=== PATIENT | male | born 1960 | race Two or more races ===

== ENCOUNTER 2020-01-04 12:05 | Emergency (ER) | payer MEDICAID, SELFPAY ==
--- NOTE | 2020-01-04 12:18 | ED_ITS ---
HPI - Abdominal Pain General Chief Complaint: Abdominal Pain Stated Complaint: abd pain Time Seen by Provider: 01/04/20 12:18 Source: patient Mode of arrival: ambulatory Limitations: no limitations History of Present Illness HPI narrative: patient no significant abdominal complaints in the past noticed diffuse abdominal pain for last 2 weeks history of hemorrhoids and slight blood in the stool when he wipes. Patient has seen his primary care doctor plan to get a CT scan as outpatient which has not been done. Patient denied any nausea/vomiting patient has good appetite MD elicited complaint: abdominal pain Pertinent past history: none Onset (ago): week(s) (2) Location: diffuse Severity: mild Quality: cramping Radiation: none Exacerbating factors: nothing Relieving factors: nothing Associated symptoms: denies other symptoms Related Data Previous Rx's Medication Instructions Recorded dicyclomine 20 mg PO QID PRN #20 tab 01/04/20 Allergies Allergy/AdvReac Type Severity Reaction Status Date / Time morphine [MORPHINE] Allergy Unknown RASH/HIVES Verified 01/04/20 12:31 From MORGIDOX Allergy Unknown ITCHY Uncoded 10/24/19 16:38 Review of Systems Review of Systems REVIEW OF SYSTEMS: Pertinent positives and negatives are stated above in the history. GEN: no fevers, chills, fatigue HEENT: no nasal congestion, sore throat, ear pain NEURO: no headache, dizziness, focal weakness PULM: no cough, shortness of breath CV: no chest pain, palpitations, LE edema ABD: no nausea, vomiting, diarrhea : no dysuria, urgency, frequency SKIN: no rash ROS otherwise negative x 10 Physical Exam Vital Signs: Vital Signs: Last Vital Signs Temp 98.3 F 01/04/20 14:00 Pulse 80 01/04/20 14:00 Resp 16 01/04/20 14:00 BP 137/81 01/04/20 14:00 Pulse Ox 96 01/04/20 14:00 Body Mass Index 33.0 Appearance: Alert. Oriented X3. No acute distress. Eyes: Pupils equal, round and reactive to light. ENT: Pharynx normal. Neck: Normal inspection. Neck supple. CVS: Normal heart rate and rhythm. Pulses normal. Respiratory: No respiratory distress. Breath sounds normal. Abdomen: Soft and diffuse tenderness no focal tenderness no guarding no rebound tenderness no mass palpable bowel sounds are normal Skin: Skin warm and dry. Normal skin color. Normal skin turgor. Extremities: No lower extremity edema. Good range of movement Neuro: Oriented X 3. No motor deficit. No sensory deficit. MDM - Abdominal Pain MDM Narrative Medical decision making narrative: patient diffuse abdominal pain no focal guarding or tenderness normal WBC count CT scan essentially is negative except for diverticulosis will give him the dicyclomine for abdominal cramps and discharge him home advised to follow-up with primary care doctor. Patient did have a colonoscopy 3 years ago which was negative and has a GI follow-up Differential Diagnosis Differential diagnosis: Likely abdominal pain, constipation, diverticulitis and pancreatitis Medical Records Attestation: I reviewed the patient's medical records. Lab Data Attestation: I reviewed the patient's lab results. Result diagrams: 01/04/20 12:59 01/04/20 12:59 Labs: Lab Results 01/04/20 01/04/20 01/04/20 Range/Units 12:59 12:59 12:59 WBC 10.0 (4.8-10.8) X10*3/uL RBC 5.24 (4.60-5.80) X10*6/uL Hgb 16.4 (14.0-18.0) g/dl Hct 47.3 (42-52) % MCV 90.3 (80-98) fL MCH 31.3 (27.0-33.0) pg MCHC 34.7 (31.0-36.0) g/dl RDW 12.4 (11.0-16.0) % Plt Count 325 (160-400) X10*3/uL MPV 10.0 (9.4-12.4) fL Immature Gran % (Auto) 0.3 (0.0-0.4) % Neut % (Auto) 50.3 (45-73) % Lymph % (Auto) 37.0 (20-40) % [place] % (Auto) 7.7 (2-11) % Eos % (Auto) 4.1 H (0-4) % Baso % (Auto) 0.6 (0-2) % Lymph # (Auto) 3.7 (1.2-4.9) X10*3/uL [place] # (Auto) 0.8 (0.1-1.2) X10*3/uL Eos # (Auto) 0.4 (0.0-0.4) X10*3/uL Baso # (Auto) 0.1 (0.0-0.2) X10*3/uL Abs Immat Gran (auto) 0.03 (0.00-0.03) X10*3/uL Absolute Neuts (auto) 5.0 (2.0-8.3) X10*3/uL Absolute Nucleated RBC 0.000 (0.0-0.012) X10*3/uL Nucleated RBC % (auto) 0.0 (0.0-0.2) /100WBC Hold Blue Top SEE NOTE Sodium 138 (135-145) mmol/L Potassium 4.6 (3.3-5.1) mmol/l Chloride 102 (96-108) mmol/L Carbon Dioxide 27 (22-29) mmol/L Anion Gap 14 (12-20) BUN 19 H (9-16) mg/dL Creatinine 0.82 (0.5-1.4) mg/dL Estim Creat Clear Calc 113.0 Estimated GFR > 60 Random Glucose 107 (60-115) mg/dL Calcium 9.6 (8.4-10.2) mg/dL Total Bilirubin 0.7 (0.0-1.0) mg/dL AST 26 (5-37) U/L ALT 38 (0-40) U/L Alkaline Phosphatase 91 (39-117) U/L Total Protein 7.7 (6.5-8.0) g/dL Albumin 4.5 (3.5-5.0) g/dL Lipase 29 (8-78) U/L Urine Color Urine Appearance Urine pH (5.0-8.0) Ur Specific [place] (1.005-1.025) Urine Protein (NEG-TRACE) MG/DL Urine Glucose (UA) (NEG) MG/DL Urine Ketones (NEG) MG/DL Urine Blood (NEG) Urine Nitrite (NEG) Ur Leukocyte Esterase (NEG) 01/04/20 Range/Units 12:59 WBC (4.8-10.8) X10*3/uL RBC (4.60-5.80) X10*6/uL Hgb (14.0-18.0) g/dl Hct (42-52) % MCV (80-98) fL MCH (27.0-33.0) pg MCHC (31.0-36.0) g/dl RDW (11.0-16.0) % Plt Count (160-400) X10*3/uL MPV (9.4-12.4) fL Immature Gran % (Auto) (0.0-0.4) % Neut % (Auto) (45-73) % Lymph % (Auto) (20-40) % [place] % (Auto) (2-11) % Eos % (Auto) (0-4) % Baso % (Auto) (0-2) % Lymph # (Auto) (1.2-4.9) X10*3/uL [place] # (Auto) (0.1-1.2) X10*3/uL Eos # (Auto) (0.0-0.4) X10*3/uL Baso # (Auto) (0.0-0.2) X10*3/uL Abs Immat Gran (auto) (0.00-0.03) X10*3/uL Absolute Neuts (auto) (2.0-8.3) X10*3/uL Absolute Nucleated RBC (0.0-0.012) X10*3/uL Nucleated RBC % (auto) (0.0-0.2) /100WBC Hold Blue Top Sodium (135-145) mmol/L Potassium (3.3-5.1) mmol/l Chloride (96-108) mmol/L Carbon Dioxide (22-29) mmol/L Anion Gap (12-20) BUN (9-16) mg/dL Creatinine (0.5-1.4) mg/dL Estim Creat Clear Calc Estimated GFR Random Glucose (60-115) mg/dL Calcium (8.4-10.2) mg/dL Total Bilirubin (0.0-1.0) mg/dL AST (5-37) U/L ALT (0-40) U/L Alkaline Phosphatase (39-117) U/L Total Protein (6.5-8.0) g/dL Albumin (3.5-5.0) g/dL Lipase (8-78) U/L Urine Color YELLOW Urine Appearance CLEAR Urine pH 5.5 (5.0-8.0) Ur Specific [place] >= 1.030 H (1.005-1.025) Urine Protein NEG (NEG-TRACE) MG/DL Urine Glucose (UA) NEG (NEG) MG/DL Urine Ketones NEG (NEG) MG/DL Urine Blood NEG (NEG) Urine Nitrite NEG (NEG) Ur Leukocyte Esterase NEG (NEG) Discharge Plan Discharge Clinical Impression: Diverticulosis Patient Disposition: Home, Self-Care Instructions: Diverticulosis (ED) Additional Instructions: drink plenty of fluid medication adverse advised for abdominal pain. Report to the ER if increased fever increased pain vomiting or blood in stool Prescriptions: New dicyclomine 20 mg tablet 20 mg PO QID PRN (Reason: abdominal pain) Qty: 20 RF: 0 Interventions: ED Discharge Assessment Last Done: 01/04/20 15:24 Discharge Date/Time: 01/04/20 15:25 [facility] Past Medical History Medical History Spleen absent Social History Social History Alcohol intake: never Smoking Status: Never smoker Use of substances other than those prescribed or required for medical reasons: No Advance Directives: No Advance Directives Information Provided: No
--- NOTE | 2020-01-04 12:31 | CT_ITS ---
EXAMINATION: CT ABDOMEN AND PELVIS WITHOUT CONTRAST CLINICAL INFORMATION: Left lower quadrant pain. Diverticulitis? COMPARISON: Abdomen ultrasound from 11/29/2017. Abdomen CT from 10/31/2000. TECHNIQUE: Multidetector volumetric imaging was performed from the superior aspect of the liver through the pubic symphysis. Sagittal and coronal reformatted images were obtained on the technologist's workstation. This CT examination was performed using dose optimization techniques as appropriate, variously including the following: *Automated exposure control *Adjustment of mA and/or kV according to patient size (this includes techniques or standardized protocols for targeted exams where dose is matched to indication/reason for exam; i.e. extremities or head) *Use of iterative reconstruction technique DLP: 701 mGy-cm FINDINGS: LUNG BASES: No basilar consolidation or pleural effusion. There are subtle hazy and reticular opacities around peripheral airways in lower lobes, consistent with mild peribronchiolar inflammatory changes and/or minimal atelectasis. HEPATOBILIARY: Liver has normal size and contour. Diffuse hepatic steatosis. Gallbladder is unremarkable. No intrahepatic or extrahepatic bile duct dilatation. PANCREAS: Normal. No evidence of pancreatic ductal dilatation or mass. SPLEEN: 6 cm rounded structure in the left upper quadrant is unchanged compared to 10/31/2010. 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 ADRENAL GLANDS: Normal. KIDNEYS AND URETERS: Kidneys are normal in size. Bilateral renal cysts are present. 1.7 x 2.3 cm hyperdense proteinaceous or hemorrhagic cyst at the the posterior lower pole of the left kidney. No nephrolithiasis or hydronephrosis. BOWEL AND PERITONEUM: Stomach is unremarkable. No dilated loops of bowel. The appendix is normal. No overt bowel wall thickening or mesenteric fat stranding. Mild diverticulosis of the descending and sigmoid colon without diverticulitis. No ascites or pneumoperitoneum. ABDOMINAL WALL: Small fat-containing periumbilical hernia. VASCULATURE: Abdominal aorta is normal in size. 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 It measures 1.2 cm AP diameter, compared to 1 cm on 10/31/2010. There might be a second renal artery aneurysm of 1.1 cm size. LYMPH NODES: No pathologic sized lymph nodes in the abdomen or pelvis. No inguinal lymphadenopathy. BLADDER AND PELVIC VISCERA: Urinary bladder is empty. No bladder calculi. Prostate gland is unremarkable. No pelvic free fluid. SKELETAL: Unremarkable. CT/CT abdomen pelvis wo con IMPRESSION: * Mild diverticulosis of the descending and sigmoid colon without diverticulitis. No specific source of left lower abdominal pain is identified. * No evidence of urolithiasis or urinary tract obstruction. * There is a 1.7 x 2.3 cm hyperdense proteinaceous or hemorrhagic cyst at the posterior lower pole of the left kidney. * Diffuse hepatic steatosis. 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
[2020-01-04 12:32] VITALS: BP 150/94; PULSE 81; RESP 18; TEMP 36.8; O2SAT 97; BMI 33.0
[2020-01-04] MEDS: 0.9 % Sodium Chloride 1,000 ML 999 ML IVCONT (13:03)
[2020-01-04 13:07] LABS: Glucose Urine UA NEG (NEG); Leukocyte Esterase Urine NEG (NEG); Nitrite Urine NEG (NEG); PH 5.5 (5.0-8.0); Specific Gravity - Urine >= 1.030 (1.005-1.025); Urine Blood NEG (NEG); Urine Ketones NEG (NEG); Urine Protein NEG (NEG-TRACE)
[2020-01-04 13:08] LABS: Appearance Urine CLEAR; Basophils Absolute Auto 0.1 X10*3/uL (0.0-0.2); Basophils Percent Auto 0.6 % (0-2); Color Urine YELLOW; Eosinophils Absolute Auto 0.4 X10*3/uL (0.0-0.4); Eosinophils Percent Auto 4.1 % (0-4); Hematocrit 47.3 % (42-52); Hemoglobin 16.4 g/dl (14.0-18.0); Imm Gran Abs Auto 0.03 X10*3/uL (0.00-0.03); Imm Gran Pct Auto 0.3 % (0.0-0.4); Lymphocytes Absolute Auto 3.7 X10*3/uL (1.2-4.9); Mean Corpuscular HGB Conc 34.7 g/dl (31.0-36.0); Mean Corpuscular Hemoglobin 31.3 pg (27.0-33.0); Mean Corpuscular Volume 90.3 fL (80-98); Monocytes Absolute Auto 0.8 X10*3/uL (0.1-1.2); Monocytes Percent Auto 7.7 % (2-11); Neutrophils Percent Auto 50.3 % (45-73); Platelet Count 325 X10*3/uL (160-400); Red Blood Count 5.24 X10*6/uL (4.60-5.80); Red Cell Distribution Width 12.4 % (11.0-16.0)
[2020-01-04 13:10] LABS: MANUAL DIFF FLAG NO
[2020-01-04 13:35] LABS: Alanine Aminotransferase 38 U/L (0-40); Albumin Level 4.5 g/dL (3.5-5.0); Alkaline Phosphatase 91 U/L (39-117); Anion Gap 14 (12-20); Aspartate Amino Transferase 26 U/L (5-37); Bilirubin Total 0.7 mg/dL (0.0-1.0); Blood Urea Nitrogen 19 mg/dL (9-16); Calcium 9.6 mg/dL (8.4-10.2); Carbon Dioxide 27 mmol/L (22-29); Chloride 102 mmol/L (96-108); Estimated Glomerular Filt Rate > 60; Glucose Random 107 mg/dL (60-115); Lipase 29 U/L (8-78); Potassium 4.6 mmol/l (3.3-5.1); Sodium 138 mmol/L (135-145); Total Protein 7.7 g/dL (6.5-8.0)
[2020-01-04 14:00] VITALS: BP 137/81; PULSE 80; RESP 16; TEMP 36.8; O2SAT 96
[2020-01-04] MEDS: Dicyclomine HCl 10 MG CAPSULE 20 MG PO (15:18)
== END 2020-01-04 15:25 | disposition home or self-care (01) ==
PROVIDERS: Emergency Provider Internal Medicine; PCP Internal Medicine Geriatric Medicine
DX: K57.30 Diverticulosis of large intestine without perforation or abscess without bleeding (principal); R10.9 Unspecified abdominal pain; Z79.899 Other long term (current) drug therapy
CPT/HCPCS: 36415; 74176; 80053; 81003; 83690; 85025; 96360; 99284

== ENCOUNTER 2020-01-15 09:33 | Outpatient (REF) | payer MEDICAID, SELFPAY ==
--- NOTE | 2020-01-15 09:35 | CT_ITS ---
EXAMINATION: CT ABDOMEN WITH CONTRAST CLINICAL INFORMATION: Periapical pain. COMPARISON: CT abdomen and pelvis 12/27/2019. TECHNIQUE: Contiguous axial thin section helical images of the abdomen were performed following the administration of oral contrast and 85 mL of Omnipaque 350 intravenous contrast. The data set was reformatted in the coronal and sagittal planes and reviewed on an independent workstation. This CT examination was performed using dose optimization techniques as appropriate, variously including the following: *Automated exposure control *Adjustment of mA and/or kV according to patient size (this includes techniques or standardized protocols for targeted exams where dose is matched to indication/reason for exam; i.e. extremities or head) *Use of iterative reconstruction technique DLP: 370 mGy-cm FINDINGS: LUNG BASES: Both lung bases are expanded and clear. The heart size is normal. LIVER, GALLBLADDER, AND BILIARY TREE: The liver is normal size, contour and decreased density. No focal lesion or intrahepatic ductal dilatation seen. No radiopaque gallstones or wall thickening seen. PANCREAS: The pancreas is unremarkable. SPLEEN: Spleen is absent. There is a small accessory splenule measuring 6.2 cm in maximum width. ADRENAL GLANDS AND KIDNEYS: The adrenal glands are symmetrical and normal. Both kidneys are normal size, shape and position. There is mild cortical thinning or scarring upper lobe pole left kidney. There are bilateral renal cysts largest left renal cyst lower pole left kidney measures 4.5 x 4.5 x 4.9 cm. The high density exophytic lesion along the lower pole left kidney measuring 2.2 x 1.5 x 2.1 cm and approximately 89 Hounsfield units suggestive of a solid lesion. It appears unchanged to the recent exam of 01/04/2020, however, reported as proteinaceous or hemorrhagic cyst. There are 4 mm punctate radiopaque calculi in the upper pole left kidney better visualized on 12/27/2019 CT exam. No caliectasis or hydronephrosis seen in either kidney. BOWEL LOOPS: There is scattered stool and gas seen throughout the colon without any significant distention. There is scattered colonic diverticulosis. The small bowel loops are opacified oral contrast and are normal caliber. Appendix is normal. No inflammatory changes seen in the abdomen exam. LYMPH NODES: Normal. VASCULAR: Unremarkable. BONES: No gross bony abnormality seen. CT/CT abdomen w con IMPRESSION: Mild attenuation of liver without any focal lesions. Colonic diverticulosis without visible diverticulitis on this abdomen CT. Multiple bilateral renal cysts with scarring or cortical thinning upper pole left kidney. Nonobstructive 2 radiopaque calculi upper pole left kidney seen previously without caliectasis or hydronephrosis. There is a complex slightly enhancing lesion exophytic lower pole left kidney. On previous noncontrast CT abdomen exam it measures 60 Hounsfield units on the present contrast-enhanced CT it measures 87 Hounsfield units. Even though this may represent a hemorrhagic or proteinaceous cyst, due to enhancement, underlying malignancy cannot be excluded. A long-term yearly follow-up can be performed or a CT-guided biopsy if clinically preferred.
[2020-01-15] MEDS: iohexoL 350 MG/ML 100 ML INFUS..BTL 85 ML IV (12:35)
== END 2020-01-15 09:34 | disposition home or self-care (01) ==
LOC: HO.CT 09:33
PROVIDERS: PCP Internal Medicine Geriatric Medicine; Visit Provider Internal Medicine Geriatric Medicine
DX: R10.33 Periumbilical pain (principal)
CPT/HCPCS: 74160; Q9967

== ENCOUNTER 2022-03-08 10:59 | Outpatient (REF) | payer MEDICAID, SELFPAY ==
[2022-03-08 12:40] LABS: Anion Gap 13 (12-20); Blood Urea Nitrogen 14 mg/dL (9-16); Calcium 9.5 mg/dL (8.4-10.2); Carbon Dioxide 22 mmol/L (22-29); Chloride 106 mmol/L (96-108); Estimated Glomerular Filt Rate > 60; Glucose Random 105 mg/dL (60-115); Potassium 4.3 mmol/L (3.3-5.1); Sodium 137 mmol/L (135-145)
== END 2022-03-08 11:00 | disposition home or self-care (01) ==
LOC: HO.LAB 10:59
PROVIDERS: Absent Provider Internal Medicine Geriatric Medicine; PCP Internal Medicine Geriatric Medicine; Visit Provider Emergency Medicine
DX: R93.5 Abnormal findings on diagnostic imaging of other abdominal regions, including retroperitoneum (principal)
CPT/HCPCS: 36415; 80048

== ENCOUNTER 2022-03-29 10:38 | Outpatient (REF) | payer MEDICAID, SELFPAY ==
--- NOTE | ~2022-03-29 | CT_ITS ---
EXAMINATION: CT ABDOMEN AND PELVIS WITHOUT AND WITH CONTRAST CLINICAL INFORMATION: Left renal lesion. COMPARISON: Previous CT of the abdomen and pelvis January 2020 and abdominal ultrasound November 2017. TECHNIQUE: Multidetector volumetric imaging was performed of the abdomen and pelvis before and after the IV administration of 85 mL of Omnipaque 300 intravenous contrast. Sagittal and coronal reformatted images were obtained on the technologist's workstation. This CT examination was performed using dose optimization techniques as appropriate, variously including the following: *Automated exposure control *Adjustment of mA and/or kV according to patient size (this includes techniques or standardized protocols for targeted exams where dose is matched to indication/reason for exam; i.e. extremities or head) *Use of iterative reconstruction technique DLP: 904 mGy-cm FINDINGS: LUNG BASES: The visualized lung bases are unremarkable. LIVER, GALLBLADDER, AND BILIARY TREE: The liver is normal in size, shape, and attenuation. No focal hepatic lesion or biliary ductal dilatation is present. The gallbladder is unremarkable with no evidence of radiopaque gallstones, gallbladder wall thickening, or obvious pericholecystic inflammatory changes. PANCREAS: Unremarkable. SPLEEN: Abnormal location and contour of the spleen question representing a giant splenule. This measures 5 x 6 cm. This is unchanged from previous exams. ADRENAL GLANDS: Unremarkable. KIDNEYS AND URETERS: There is cortical thinning or scarring in the upper pole of the left kidney. There are small bilateral renal stones. There are multiple bilateral renal cysts. Largest right renal cyst measures 2.8 x 3.5 cm in the posterior right kidney. Largest left renal cyst measures 4.5 x 5 cm in the lower pole of the left kidney. There is a 2 x 2.8 cm lesion exophytic to the posterior lower pole of the left kidney. This is high attenuation precontrast, Hounsfield units measuring 80. Hounsfield units postcontrast measure 80 as well without evidence of enhancement. This is suggestive of a hyperdense cyst. This is increased in size from 1.6 x 2.[address] The remainder of the cysts represent simple cysts. No imaging follow-up recommended. No hydronephrosis. BLADDER: Unremarkable. GASTROINTESTINAL TRACT: Mild diverticulosis of the colon. The small and large bowel are otherwise unremarkable. The appendix is unremarkable. ABDOMINAL WALL: Diastasis of the rectus muscles. Small umbilical and periumbilical hernias containing fat and periumbilical bulge containing small bowel. LYMPH NODES: Normal. VASCULAR: Unremarkable. PELVIC VISCERA: Unremarkable. OSSEOUS STRUCTURES: Unremarkable. CT/CT abdomen pelvis wo/w IV con IMPRESSION: No suspicious renal mass. Bilateral simple renal cysts. Slight interval increase in size in the hyperdense complex cyst in the left kidney compared to previous exams. Small bilateral renal stones. Cortical thinning or scarring in the upper pole of the left kidney. Mild diverticulosis of the colon. Fleischner guidelines were followed.
[2022-03-29] MEDS: iohexoL 350 MG/ML 100 ML INFUS..BTL 85 ML IV (11:29)
== END 2022-03-29 10:39 | disposition home or self-care (01) ==
LOC: HO.CT 10:38
PROVIDERS: Visit Provider Emergency Medicine
DX: R93.5 Abnormal findings on diagnostic imaging of other abdominal regions, including retroperitoneum (principal)
CPT/HCPCS: 74178; Q9967